=== PATIENT | female | born 1960 | race Caucasian/White ===

== ENCOUNTER → 2022-06-02 07:53 | Outpatient (CLI) | payer OTHER, SELFPAY ==
--- NOTE | 2022-06-02 | DI.MRI.S_ITS ---
PROCEDURE: MR KNEE RT WO CON INDICATIONS: ACUTE RIGHT KNEE PAIN TECHNIQUE: Noncontrast sagittal PD fast spin echo and T2 fast spin echo with fat saturation, sagittal 3-D FLASH with fat saturation; coronal T1 spin echo and PD fast spin echo with fat saturation, and axial PD fast spin echo with fat saturation through the knee. COMPARISON: [facility], CR, XR KNEE ARTHRITIC SERIES RT, 04/14/2022, 10:57. FINDINGS: Image quality: Excellent. Menisci: Medial extrusion of the medial meniscus is present. There is amorphous and linear oblique high T2 signal intensity within the inner, middle, and peripheral thirds of the medial meniscal body and posterior horn, demonstrating inferior articular surface extension, indicating complex tearing. Lateral meniscus is intact. Cruciate ligaments: The anterior and posterior cruciate ligaments appear intact. Medial structures: The medial collateral ligament appears intact. Mild T2 signal elevation surrounds the medial collateral ligament. Visualized portions of the pes anserinus tendons appear normal. No abnormal bursal fluid. Lateral structures: The lateral collateral ligament demonstrates mild T2 signal elevation at the femoral origin. The long and short heads of the biceps femoris tendon appear intact. The popliteus tendon appears normal. Iliotibial band appears normal. Anterior structures: The quadriceps and patellar tendons appear intact. Patellar alignment is normal. No femoral trochlear dysplasia or ventral trochlear prominence. No edema in the infrapatellar fat pad. Bones and cartilage: Linear subchondral low T1/T2 signal intensity within the mid/posterior weight-bearing aspect of the medial tibial plateau is present, spanning roughly 6 mm anteroposterior by 6 mm transverse, with moderate surrounding ill-defined T2 signal elevation. There is moderate tricompartmental periarticular osteophyte formation. Mild subchondral degenerative marrow edema within the mid weight-bearing aspect of the medial femoral condyle. Severe articular cartilage loss diffusely overlies the weight-bearing aspects of the medial femoral condyle and medial tibial plateau. Mild articular cartilage loss diffusely overlies the weight-bearing aspects of the lateral femoral condyle and lateral tibial plateau. Severe articular cartilage loss overlies the patellar apex and adjacent portion of the medial patellar facet. Joint space: There is a moderate knee joint effusion and a moderate Bullock's cyst. Normal appearing synovial plicae are incidentally noted. IMPRESSION: 1. Tricompartmental osteoarthritis with associated articular cartilage loss. 2. Stress fracture within the medial tibial plateau with surrounding contusion. 3. Complex tearing of the medial meniscus. 4. Medial collateral ligament strain. 5. Low-grade partial thickness lateral collateral ligament tear. 6. Knee joint effusion and Bullock's cyst. Dictated by: Mili Gamble M.D. on 06/02/2022 at 11:40 Approved by: Mili Gamble M.D. on 06/02/2022 at 11:46
== END ==
PROVIDERS: Referring Provider Orthopaedic Surgery; Visit Provider Orthopaedic Surgery
DX: M84.361A Stress fracture, right tibia, initial encounter for fracture (principal); M17.11 Unilateral primary osteoarthritis, right knee; S83.241A Other tear of medial meniscus, current injury, right knee, initial encounter; S83.411A Sprain of medial collateral ligament of right knee, initial encounter; S83.421A Sprain of lateral collateral ligament of right knee, initial encounter; M25.461 Effusion, right knee; M71.21 Synovial cyst of popliteal space [Baker], right knee
CPT/HCPCS: 73721